=== PATIENT | female | born 1990 | race Caucasian/White ===

== ENCOUNTER 2022-11-11 07:33 | Day surgery (SDC) | payer OTHER, SELFPAY ==
[2022-11-11] VITALS (8 sets, daily range): BP systolic 108–117; BP diastolic 72–77; PULSE 70–83; RESP 15–76; TEMP 36.1–36.7; O2SAT 100; BMI 20.1
[2022-11-11] MEDS: Lactated Ringers 1,000 ML 30 ML IV (08:15)
--- NOTE | 2022-11-11 08:34 | W.ANESPRE ---
General Info Date of Service Date Performed: 11/11/22 Height: 5 ft 3.25 in Weight: 52 kg Body Mass Index (BMI): 20.1 Surgical Procedure: Operation Date: 11/11/22 08:55 Proposed Procedure Side Surgeon p Tonsillectomy & Possible Adenoidectomy Mak Dominique MD Meds Allergies and Home Medications Allergies Allergy/AdvReac Type Severity Reaction Status Date / Time No Known Allergies Allergy Verified 11/11/22 07:53 Home Medication Medication Instructions Recorded acyclovir 400 mg tablet 400 mg PO DAILY PRN 05/31/22 adapalene 0.3 % topical gel 1 applic topical .every other day 05/31/22 Copper IUD vaginal 06/18/22 Current Visit Medications: Current Medications Generic Name Dose Route Start Last Admin Trade Name Freq PRN Reason Stop Dose Admin Tranexamic Acid 1,000 mg/ 60 mls @ 360 mls/hr 11/11/22 06:00 Sodium Chloride IVPB 11/11/22 16:00 PREOP SUZE Cefazolin Sodium/Dextrose 2 gm in 50 mls @ 100 mls/hr 11/11/22 06:00 Ancef Duplex IVPB 11/11/22 23:59 PREOP SUZE Ringer's Solution 1,000 mls @ 30 mls/hr 11/11/22 07:33 11/11/22 08:15 IV 12/11/22 07:32 30 mls/hr INFUSION SUZE Administration IV Miscellaneous Supplies 1 each 11/11/22 06:00 Iv Access IV 11/11/22 23:59 DIRECTED SUZE Sodium Chloride 0 ml 11/11/22 06:00 Normal Saline Flush 10 Ml Syr IV 11/11/22 23:59 PRN PRN Sodium Chloride 0 ml 11/11/22 06:00 Normal Saline 10 Ml Vial IJ 11/11/22 23:59 DIRECTED PRN Sterile Water 0 ml 11/11/22 06:00 Water,Injection,Sterile 10 Ml Vial IJ 11/11/22 23:59 DIRECTED PRN PFSH Active Problems Active Problems: Problem Status Onset Code 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 Chronic tonsillitis J35.01 Medical History Medical History IUD (intrauterine device) in place Copper IUD placed 2014, per pt record.HE Surgical History Surgical History [place] teeth extracted Tobacco Smoking/Tobacco Use Status: Never Second hand exposure: No Alcohol Alcohol Intake: current Alcohol intake frequency: holidays/special occasions only Substance Use Substance use: Occasionally Substance use type: marijuana Vital Signs and Lab Results Vital Signs Most Recent Vital Signs in EMR: Most Recent Vital Signs Temp Pulse Resp BP Pulse Ox 36.4 C L 80 18 109/74 100 11/11/22 07:40 11/11/22 07:40 11/11/22 07:40 11/11/22 07:40 11/11/22 07:40 Point of Care Results Point of Care Results: POC- Test(urine) Negative 11/11/22 08:15 Lab Results Blood Type / Crossmatch: No Data to Display Complete Blood Count: No Data to Display Complete Metabolic Panel: No Data to Display Liver Function Panel: No Data to Display Coagulation Panel: No Data to Display Cardiac Panel: No Data to Display Arterial Blood Gas: No Data to Display Venous Blood Gas: No Data to Display Pancreas Panel: No Data to Display Thyroid Panel: No Data to Display Infectious Disease: No Data to Display Blood Cultures: No Data to Display Toxicology Panel: No Data to Display Panel: No Data to Display Anesthesia Assessment and Plan Anesthesia History Personal History: Delayed Emergence Family History: No Family History of Anesthesia Complications Exercise Tolerance Exercise Tolerance: Metabolic Equivalents>4 Cardiac & Pulmonary Exam Cardiac Exam: Normal S1/S2 Heart Sounds Pulmonary Exam: Clear Bilateral Breath Sounds Implantable Cardiac Device Does patient have a Pacemaker or an ICD?: No Airway Exam Known Difficult Airway: No Mallampati Class: 1 Mouth Opening: Normal (> 3cm) Thyromental Distance: Greater than 3 cm Facial Hair: Full [place] Range of Motion: Full ROM Neck Circumference: Normal Teeth Condition: Normal Dentition ASA Classification ASA Score: ASA 2 Emergency Case?: No NPO Status NPO Status: NPO Clears >2 hours, Solids >8 hours Status Status: Negative HCG Anesthesia Plan Resuscitation Status: Full Code Anesthesia Technique: General Anesthesia Airway Planned: Endotracheal Tube Monitors Used: Standard Monitors Preoperative Comments:: 32 yo female for tonsil removal. vasovagal Sig PMHx: meningitis with ? TIA in her 20s, occ cannabis, otherwise healthy denies major issues.
--- NOTE | 2022-11-11 08:48 | W.PM.DSUDISC ---
Date of service: 11/11/22 Time of Service: 08:49 Discharge Plan Disposition Patient Disposition: Home Condition: Good Discharge Details Attending Provider: Mak Dominique Primary Care Provider: Isabelle Mueller Home Meds and New Rx's Prescriptions: No Action Copper IUD vaginal acyclovir 400 mg tablet 400 mg PO DAILY PRN adapalene 0.3 % gel 1 applic topical .every other day Discharge Instructions Additional Instructions: My cell phone number is [phone]. Please call with any questions or concerns. If you feel this is an emergency, and you are unable to reach me, please proceed to the emergency room or call 911 Stand Alone Forms: ENT- T&A InstrApolonia Dominique Referrals: Mak Dominique MD [ [facility] STAFF PHYSICIAN] - (1 month, please call for appt prior to patients departure) Discharge Orders Discharge Orders: Discharge Order (Routine); Ordered 11/11/22 Ordered By: Mak Dominique
[2022-11-11] MEDS: ceFAZolin 2 GM/50 ML BAG IVPB (09:00)
--- NOTE | 2022-11-11 09:20 | TONSIL_PTH ---
PATIENT: Lorenza Carbajal LOC: [facility] U#:[id number] AGE/SX: 32/F ROOM: RE11/11/[address]: Mak Dominique MD : 1990 BED: DIS: 11/11/2022 SPEC #: [id number] RECD: 11/11/22 12:48 STATUS: ARUNA REQ #: [id number] ADRIENNE: 11/11/22 09:[address]: Mak Dominique DEPT: Surgical Specimen RECD BY: Corrie Waddell ENTERED: 11/11/22 12:49 SP TYPE: TONSIL OTHR DR: Isabelle Mueller APRN Tissues: 1 - TONSIL AGE 17 & OVER 2 - TONSIL AGE 17 & OVER Procedures: GROSS AND MICRO LEVEL 3 Comments: [id number]
--- NOTE | 2022-11-11 09:46 | W.PM.OP ---
Date of service: 11/11/22 Time of Service: 09:46 Operative Note Operative Note DATE OF PROCEDURE: 11/11/22 PRE-OP DIAGNOSIS: Chronic tonsillitis, tonsillar hypertrophy POST-OP DIAGNOSIS: same PROCEDURE: Tonsillectomy SURGEON: Mak Dominique ANESTHESIA TYPE: General LMA/ETT Refer to Anesthesia Record ESTIMATED BLOOD LOSS: 50 PATHOLOGY: other (Left and right tonsils) COMPLICATIONS: None Patient was transported to: PACU Patient's condition: stable Indications: Patient with the above problems. Options were explained to the family regarding further management. She elected to undergo the above procedure. Consent was filled out and signed prior to surgery. All questions were answered. H&P was reviewed and was unchanged. Risks of narcotics were reviewed once again. Findings: 3+ tonsils with copious cryptic debris, palate intact to inspection and palpation, atrophic adenoids without debris or inflammation Procedure Description: After obtaining an adequate level of general endotracheal anesthesia the patient was positioned in a supine position and prepped and draped in appropriate fashion. 0.25% Marcaine with 1/100,000 epinephrine was injected into the submucosal planes around each tonsil. Adenoids were examined revealing no significant residual adenoid. Each tonsil was grasped and pulled medially and posteriorly and a 12 blade used to incise mucosa along the superior, anterior, and posterior edges of the tonsil. A Josh elevator was then used to disarticulate the tonsil from the superior tonsillar fossa and a Tapia blade used to strip the tonsil free from the tonsillar fossa down to the inferior pole at which point time a tonsillar snare was used to amputate the tonsil from the tonsillar fossa. Once the been accomplished bilaterally electrocautery suction tip catheter set on 15 W coagulation was used to achieve relatively hemostasis within the tonsillar beds. The Esther Bobby mouthgag was relaxed and reopened revealing no further bleeding. Valsalva failed to induce any further bleeding. The Esther Bobby mouthgag was relaxed and removed and the patient was then transported to the recovery room in stable condition by anesthesia. I was present throughout the entire case.
--- NOTE | 2022-11-11 10:13 | W.ANESPOSTOP ---
Postoperative Evaluation Date, Time and Location Date Performed: 11/11/22 Time Performed: 10:13 Patient Location: PACU Vital Signs Most Recent Imported Vital Signs: Most Recent Vital Signs Temp Pulse Resp BP Pulse Ox 36.7 C 75 16 108/72 100 11/11/22 10:03 11/11/22 10:03 11/11/22 10:03 11/11/22 10:03 11/11/22 10:03 Pain Score Most Recent Pain Score: Most Recent Pain Score Pain Level 0 11/11/22 10:03 Assessment Mental Status: Awake (Alert & Oriented to Patient Baseline) Airway and Respiratory Function: Patent airway with normal (patient baseline) respiratory exam Cardiovascular Function: Hemodynamically Stable Hydration Status: Adequately Hydrated Nausea & Vomiting: No Nausea or Vomiting Pain: Pt. Denies Any Pain Peripheral Nerve Block: Patient did not receive a nerve block
[2022-11-11] MEDS: Ondansetron O.D.T. 4 MG TABEF PO (11:55)
== END 2022-11-11 12:16 | disposition home or self-care (01) ==
PROVIDERS: PCP Nurse Practitioner; Visit Provider Otolaryngology
PROC: (CPT 42826; principal; 2022-11-11 08:45)
DX: J35.01 Chronic tonsillitis (principal)
CPT/HCPCS: 42826; 81025; 88304; J0131; J0690; J1100; J2001; J2405; J2704; J3475

== ENCOUNTER 2025-03-29 14:53 | Outpatient (REF) | payer SELFPAY | END 2025-03-29 14:54 | disposition home or self-care (01) | LOC: LBN 14:53 | PROVIDERS: PCP Nurse Practitioner; Visit Provider Nurse Practitioner Family | DX: N76.0 Acute vaginitis (principal) | CPT/HCPCS: 87480; 87510; 87660 ==